=== PATIENT | female | born 1975 | race Caucasian/White ===

== ENCOUNTER 2019-04-22 08:42 | Emergency (ER) | payer MEDICAID ==
[~2019-04-22] VITALS: Ht 152.4 cm; Wt 90.7 kg
[2019-04-22] MEDS ORDERED: cloNIDine HCL 0.1 MG TAB ONE ×2 (08:51→08:59)
[2019-04-22 08:54] VITALS: BP 180/121
[2019-04-22] MEDS ORDERED: cloNIDine HCL 0.1 MG TAB PO ONE ×2 (09:00→09:15)
== END 2019-04-22 10:25 | disposition home or self-care (01) ==
LOC: ER 08:45
DX: J20.9 Acute bronchitis, unspecified (principal); H66.91 Otitis media, unspecified, right ear
CPT/HCPCS: 93005